=== PATIENT | female | born 1950 | race Hispanic/Latino ===

== ENCOUNTER → 2017-12-28 | Day surgery (SDC) | payer MEDICARE ==
[2017-12-27 16:08] LABS: BASOPHILS % 0.6 % (0.0-1.0); EOSINOPHILS # (AUTO) 0.1 (0.0-0.4); EOSINOPHILS % 1.5 % (0.0-6.0); HEMATOCRIT 37.7 % (34.2-44.1); HEMOGLOBIN 12.5 g/dL (12.0-16.0); LYMPHOCYTES # (AUTO) 1.7 (1.0-3.2); LYMPHOCYTES % 36.6 % (18.0-39.1); MEAN CORPUSCULAR HEMOGLOBIN 30.9 pg (28-32); MEAN CORPUSCULAR HGB CONC 33.2 g/dL (31-35); MEAN CORPUSCULAR VOLUME 93.1 fL (81-99); MONOCYTES # (AUTO) 0.5 (0.2-0.8); MONOCYTES % 10.5 % (4.4-11.3); NEUTROPHILS # (AUTO) 2.4 (2.1-6.9); NEUTROPHILS % 50.8 % (38.7-80.0); PLATELET COUNT 280 x10e3/uL (140-360); RED BLOOD COUNT 4.05 x10e6/uL (3.6-5.1); RED CELL DISTRIBUTION WIDTH 13.2 % (11.7-14.4)
[~2017-12-28] MED LIST: FENOFIBRATE145 MG; FENTANYL CITRATE/PF 100MCG/2 ML INJ ONE; GLIMEPIRIDE1 MG; LIDOCAINE HCL 2% LOCAL INJ 5 ML SDV VIAL INJ ONE; LOSARTAN POTASS25 MG; METFORMIN HCL850 MG PO; MIDAZOLAM HCL 2 MG/2 ML VIAL ONE; ONDANSETRON HCL INJ 2 MG/ML VIAL ONE; PROPOFOL IV EMULSION 10 MG/ML 50 ML VIAL ONE
--- NOTE | 2017-12-28 09:03 | Operative Report ---
DATE OF PROCEDURE: December 28, 2017 REFERRING PHYSICIAN: Dr. Alee Nolan PROCEDURE PERFORMED: Esophagogastroduodenoscopy. INDICATIONS FOR EGD: Upper abdominal pain, nausea and vomiting. MEDICATION: Patient was done under MAC. Please see anesthesiologist's note. PROCEDURE: With the patient in the left lateral decubitus position, the flexible fiberoptic Olympus gastroscope was introduced into the esophagus under direct visualization without any difficulty. There was some patchy erythema noted in the distal esophagus. A minute nodule was noted at the GE junction that was biopsied. The scope was then advanced with ease into the stomach. Mucosa overlying the antrum and the body revealed some patchy erythema and low-grade edema, and biopsies were obtained and sent to stain for H. pylori. Pylorus appeared to be of normal contour and shape. It was intubated with ease. The scope was advanced all the way to the 2nd portion of the duodenum. The scope was then withdrawn slowly. Mucosa overlying the proximal 2nd portion and the duodenal bulb appeared to be within normal limits. The scope was then withdrawn back into the stomach and retroflexed. The mucosa overlying the fundus and the cardia appeared to be within normal limits. The scope was then straightened out. The stomach was decompressed. The scope was subsequently withdrawn. Patient tolerated the procedure well. IMPRESSION 1. Distal esophagitis. 2. Nodule, gastroesophageal junction, biopsied. 3. Gastritis, biopsied. Biopsies sent to stain for Helicobacter pylori. PLAN: Follow up histology. Initiate Protonix 40 mg 1 p.o. q.a.m. a.c. Job#: [id number] RI cc:ALEE NOLAN MD
== END | disposition home or self-care (01) ==
LOC: OR 05:50
PROVIDERS: ATTEND Internal Medicine Gastroenterology
DX: K29.50 Unspecified chronic gastritis without bleeding (principal); B96.81 Helicobacter pylori [H. pylori] as the cause of diseases classified elsewhere; K20.9 Esophagitis, unspecified; L29.0 Pruritus ani; M19.90 Unspecified osteoarthritis, unspecified site; I10 Essential (primary) hypertension; E11.9 Type 2 diabetes mellitus without complications; K21.9 Gastro-esophageal reflux disease without esophagitis; K76.0 Fatty (change of) liver, not elsewhere classified; R06.83 Snoring; Z01.810 Encounter for preprocedural cardiovascular examination; Z01.812 Encounter for preprocedural laboratory examination
CPT/HCPCS: 36415 ×2; 43239; 82948; 85025; 93005; J2001; J2250; J2405

== ENCOUNTER → 2019-01-27 | Day surgery (SDC) | payer OTHER ==
[2019-01-22 16:15] LABS: EOSINOPHILS % 0.1 % (0.0-6.0); HEMATOCRIT 37.6 % (34.2-44.1); HEMOGLOBIN 12.4 g/dL (12.0-16.0); LYMPHOCYTES % 1.9 % (18.0-39.1); MEAN CORPUSCULAR HEMOGLOBIN 30.7 pg (28-32); MEAN CORPUSCULAR VOLUME 93.1 fL (81-99); MONOCYTES % 0.5 % (4.4-11.3); NEUTROPHILS % 3.2 % (38.7-80.0); PLATELET COUNT 223 x10e3/uL (140-360); RED BLOOD COUNT 4.04 x10e6/uL (3.6-5.1); RED CELL DISTRIBUTION WIDTH 13.2 % (11.7-14.4)
[~2019-01-27] MED LIST changes: +BLACK COHOSH200 MG PO; +CENTRUM SILVER1 EAC3 PO; +CRESTOR10 MG PO; -GLIMEPIRIDE1 MG; +GLIMEPIRIDE1 MG PO; +HYOSCYAMINE SULFATE 0.5 MG/ML INJ ONE; -LIDOCAINE HCL 2% LOCAL INJ 5 ML SDV VIAL INJ ONE; -LOSARTAN POTASS25 MG; +LOSARTAN POTASS25 MG PO; -MIDAZOLAM HCL 2 MG/2 ML VIAL ONE; -ONDANSETRON HCL INJ 2 MG/ML VIAL ONE; +POTASSIUM PO; +[UNRECOGNIZED DRUG - REMARK] PO
--- OUTSIDE RECORDS SUMMARY | 2019-01-27 06:18 | XMS REPORT | Summary of Care ---
Author Author [facility] [place] Organization [facility] [place] Address Unknown Phone Unavailable Encounter HQ Encntr_kanika(FIN) [id number] Date(s): 02/11/18 - 02/11/18 [facility] [place] [address] [place] [phone] Discharge Disposition: Home or Self Care Attending Physician: Low Bauer MD Vital Signs No data available for this section Problem List No data available for this section Allergies, Adverse Reactions, Alerts No data available for this section Medications No data available for this section Results No data available for this section Immunizations No data available for this section Procedures No data available for this section Social History No data available for this section Assessment and Plan No data available for this section
--- OUTSIDE RECORDS SUMMARY | 2019-01-27 06:18 | XMS REPORT | Summary of Care ---
Author Organization Unknown Address Unknown Phone Unavailable Encounter [facility] Encntr_[email or web address](FIN) [id number] Date(s): 12/18/14 - 12/18/14 [facility] Outpatient Imaging - [id number] [place] [address] [phone] Discharge Disposition: Home Physician Attending: Low Bauer MD Vital Signs No data [...]
--- OUTSIDE RECORDS SUMMARY | 2019-01-27 06:18 | XMS REPORT | Continuity of Care Document ---
Author Author [facility] Interface Address Unknown Phone Unavailable Problems Problem Status Onset Date Classification Date Reported Comments Source Encounter for screening for osteoporosis 12/12/2017 03/13/2018 [facility] [place] 793.80 - ABL MAMMOGRAM N Active 06/10/2015 [facility] [place] V76.12 - SCREEN MAMMOGRA Active 12/11/2014 [facility] [place] Age-related osteoporosis without current pathological fracture 03/13/2018 [facility] [place] Asymptomatic menopausal state 03/13/2018 [facility] [place] Medications Medication Details Route Status Patient Instructions Ordering Provider Order Date Source Allergies, Adverse Reactions, Alerts Substance Category Reaction Severity Reaction type Status Date Reported Comments Source Immunizations Immunization Date Given Site Status Last Updated Comments Source Results Order Name Results Value Reference Range Date Interpretation Comments Source Fine Needle Asp 1st Les Uni US w Clip US Fine Needle Asp 1st Les Uni US w Clip US ULTRASOUND GUIDED FINE NEEDLE ASPIRATION LEFT BREAST WITH MARKING DEVICE INSERTED AND POST DIGITAL MAMMOGRAPHIC AND ULTRASOUND IMAGIN01/17/2019 CLINICAL: /R92.8 Other Abnormal And Inconclusive Findings On Diagnostic Imaging Of Breast. PATIENT CONSENT: Risks, benefits, and alternatives were discussed with the aid of a trench pipe layer. All questions were answered. Informed consent was obtained. A time out was performed. Correlation is made to exams dated: 01/09/2019 ultrasound, 01/09/2019 mammogram, 09/19/2017 ultrasound, 09/19/2017 mammogram, 07/01/2015 ultrasound, and 07/01/2015 mammogram - [facility]. A fine needle aspiration was performed for the concerning lymph node located in the left axilla. This was described on the previous ultrasound report. The skin was prepped in the usual manner. Local anesthetic was administered to the access site. A 21 gauge needle was percutaneously placed into the abnormality under ultrasound guidance. Once the needle was documented to be in the correct location, two specimens were obtained. A wing clip was inserted into the biopsy cavity. A skin adhesive and a sterile dressing were applied to the access site. Post procedure digital mammographic and ultrasound imaging demonstrates the clip at the targeted area. The specimens were sent to the laboratory for cytological analysis. IMPRESSION: FINE NEEDLE ASPIRATION BENIGN RECOMMENDATION:Fine needle aspiration of the lymph node in the left axilla was successful with no apparent post procedure complications. Cytology indicates benign lymph node (LN). Cytology results are concordant with imaging findings. A follow-up mammogram of the biopsied breast in 6 months is recommended to demonstrate stability.(07/19/2019) This exam was interpreted at [id number] for RADHA Woods, SL 15. Professional services are provided by the [facility] of Diagnostic Imaging. Aimee Valladares M.D. ms,cm/penmark:01/23/2019 12:04:46 Assistant Teacher Primary(s): Gema Snyder [facility] letter sent: Post Bx Results 01/17/2019 - - Read by: Aimee Giron MD Dictated Date/time: 01/23/19 12:04 Electronically Signed by: Aimee Giron MD 01/23/19 12:04 FINAL REPORT RADHA Woods Breast BX Uni w Clip Primary Side US Breast BX Uni w Clip Primary Side US ULTRASOUND GUIDED BIOPSY LEFT BREAST WITH MARKING DEVICE INSERTED AND POST DIGITAL MAMMOGRAPHIC AND ULTRASOUND IMAGIN01/17/2019 CLINICAL: /R92.2 Inconclusive Mammogram. PATIENT CONSENT: The risks, benefits and alternatives for the procedure were discussed with the patient through Barbadian translation. Patient acknowledged understanding and informed written consent was obtained. Time out was performed to verify the lesion location and patient identification. Correlation is made to exams dated: 01/09/2019 ultrasound, 01/09/2019 mammogram, 09/19/2017 ultrasound, 09/19/2017 mammogram, 07/01/2015 ultrasound, and 07/01/2015 mammogram - [facility]. An ultrasound guided biopsy using real-time ultrasound was performed for the concerning 2.4 cm x 1.6 cm x 1.2 cm lesion located in the left breast at 3 o'clock middle depth 3 cm from the nipple. This was described on the previous mammography and ultrasound reports. The skin was prepped in the usual manner. Local anesthetic was administered to the access site. A 14 gauge biopsy needle was placed adjacent to the abnormality through an introducer device under ultrasound guidance. Once the needle was documented to be in the correct location, four cores were obtained using a BARD biopsy device. A ribbon clip was inserted into the biopsy cavity. A skin adhesive was applied to the access site. Post procedure digital mammographic and ultrasound imaging demonstrates the clip at the targeted area and partial removal of the abnormality. The specimens were sent to the laboratory for pathological analysis. IMPRESSION: ULTRASOUND GUIDED BIOPSY BENIGN RECOMMENDATION:Ultrasound guided biopsy of the 2.4 cm x 1.6 cm x 1.2 cm lesion in the left breast at 3 o'clock middle depth 3 cm from the nipple was successful with no apparent post procedure complications. Pathology indicates benign intraductal sclerosed papilloma. Pathology results are concordant with imaging findings. A surgical consultation is recommended. The entire area of possible additional papilloma involvement measures 5 x 5 x 4 cm. Excision vs follow-up mammogram biopsied breast in 6 months is recommended. These results were discussed with Janneth at Dr. Bauer's office on 01/23/19. Professional services are provided by the [facility] of Diagnostic Imaging. Aimee Valladares M.D. ms,cm/:01/23/2019 12:12:25 Assistant Teacher Primary(s): Gema Snyder [facility] letter sent: Surgical Consult Post Bx 01/17/2019 - - Read by: Aimee Giron MD Dictated Date/time: 01/23/19 12:12 Electronically Signed by: Aimee Giron MD 01/23/19 12:12 FINAL REPORT [facility] Breast Complete Uni US Breast Complete Uni US COMPLETE ULTRASOUND OF LEFT BREAST AND AXILLA: 01/09/2019 CLINICAL: /R92.2 Inconclusive Mammogram. COMPARISON:Comparison is made to exams dated: 01/09/2019 mammogram, 09/19/2017 ultrasound, 09/19/2017 mammogram, 07/01/2015 ultrasound, 07/01/2015 mammogram, and 12/28/2014 ultrasound - [facility]. TECHNIQUE: Color flow and real-time ultrasound of the left breast four quadrants and axilla regions were performed on the areas of interest. FINDINGS: There is a 2.4 cm x 1.6 cm x 1.2 cm area of multiple complex cysts in the left breast superior lateral quadrant middle depth 3 cm from the nipple. These complex cysts are hypoechoic with internal echoes. These abnormalities are increased in size and correlate with mammography findings. There are two prominent level I axillary lymph nodes. No lymphadenopathy in the remaining axillary or internal mammary elsi basins is identified. IMPRESSION: SUSPICIOUS OF MALIGNANCY RECOMMENDATION: The 2.4 cm x 1.6 cm x 1.2 cm area of complex cysts in the left breast is at an intermediate suspicion for malignancy. An ultrasound guided biopsy is recommended. FNA of an enlarged axillary node is recommended. Professional services are provided by the [facility] of Diagnostic Imaging. Marco Valladares M.D. cm/:01/09/2019 15:45:36 Assistant Teacher Primary(s): Gema Snyder [facility] letter sent: BI-RADS 4/5 Ultrasound BI-RADS: 4b Suspicious abnormality - intermediate suspicion of malignancy 01/09/2019 - - Read by: Abhijeet Garay MD Dictated Date/time: 01/09/19 15:45 Electronically Signed by: Abhijeet Garay MD 01/09/19 15:45 FINAL REPORT RADHA Woods Breast Mammo Diag ROYAL incl CAD MA Breast Mammo Diag ROYAL incl CAD MA BILATERAL DIGITAL DIAGNOSTIC MAMMOGRAM WITH CAD: 01/09/2019 CLINICAL: Inconclusive Mammogram/R92.2. Current study was evaluated with a Computer Aided Detection (CAD) system. COMPARISON:Comparison is made to exams dated: 09/19/2017 mammogram, 07/01/2015 mammogram, 12/28/2014 mammogram, and 12/18/2014 mammogram - [facility]. TECHNIQUE: Mammographic views were obtained using digital acquisition. Current study was also evaluated with a Computer Aided Detection (CAD) system. FINDINGS: The tissue of both breasts is heterogeneously dense, which could obscure detection of small masses. There are multiple oval masses with an obscured margin in the left breast superior lateral quadrant posterior depth 8 cm from the nipple. These are slightly more prominent when compared with prior exam. Bilateral scattered calcififcations appear benign. IMPRESSION: INCOMPLETE: NEEDS ADDITIONAL IMAGING EVALUATION RECOMMENDATION:The multiple oval masses in the left breast are indeterminate. An ultrasound is recommended. This exam was interpreted at [id number] for MH Clayton, SL 15. Professional services are provided by the [facility]. Marco Valladares M.D. cm/:01/09/2019 10:42:40 Assistant Teacher Primary(s): RT Chyna(R)(M), [facility] Mammogram BI-RADS: 0 Indeterminate 01/09/2019 - - Read by: Abhijeet Garay MD Dictated Date/time: 01/09/19 10:42 Electronically Signed by: Abhijeet Garay MD 01/09/19 10:42 FINAL REPORT [facility] Bone Density [employer] MA Bone Density [employer] MA BONE DENSITY ASSESSMENT: 01/01/2019 CLINICAL DATA: Post menopausal. M81.0 Age related osteoporosis without current pathological fracture. M81.0 Age-Related Osteoporosis Without Current Pathological Fracture/M81.0 Age-Related Osteoporosis Without Current Pathological Fracture COMPARISON: 12/05/2017 AP L1-L4 region of spine using a Hologic unit from [facility] with reported high fracture risk, BMD of 0.708g/cm2, T-score of -3.10, and Z-score of -1.30. 12/05/2017 Left hip using a Hologic unit from [facility] with reported medium fracture risk, BMD of 0.741g/cm2, T-score of -1.60, and Z-score of - 0.50. 12/05/2017 Right hip using a Hologic unit from [facility] with reported medium fracture risk, BMD of 0.754g/cm2, T-score of -1.50, and Z-score of - 0.40. FINDINGS: Bone density evaluation was performed 01/01/2019 on the right femur neck using a Hologic unit. The BMD average for the exam is 0.669 g/cm2. The T-score is -1.60 and the Z-score is -0.20. This matches the World Health Organization's criteria for osteopenia and places the patient at a medium risk for fracture. An additional bone density evaluation was performed 01/01/2019 on the left femur neck using a Hologic unit. The BMD average for the exam is 0.687 g/cm2. The T- score is -1.50 and the Z-score is -0.10. This matches the World Health Organization's criteria for osteopenia and places the patient at a medium risk for fracture. An additional bone density evaluation was performed 01/01/2019 on the right hip using a Hologic unit. The BMD average for the exam is 0.754 g/cm2. The T-score is -1.50 and the Z-score is -0.40. Since the previous similar exam of 12/05/2017, there has been no change in bone density. This matches the World Health Organization's criteria for osteopenia and places the patient at a medium risk for fracture. An additional bone density evaluation was performed 01/01/2019 on the left hip using a Hologic unit. The BMD average for the exam is 0.771 g/cm2. The T-score is -1.40 and the Z-score is -0.20. Since the previous similar exam of 12/05/2017, there has been a +0.030 or +4.0% change in the BMD value which represents no significant interval change in bone density. This matches the World Health Organization's criteria for osteopenia and places the patient at a medium risk for fracture. An additional bone density evaluation was performed 01/01/2019 on the AP L1-L4 region of spine using a Hologic unit. The BMD average for the exam is 0.696 g/cm2. The T-score is -3.20 and the Z-score is -1.30. Since the previous similar exam of 12/05/2017, there has been a -0.012 or -1.7% change in the BMD value which represents no significant interval change in bone density. This matches the World Health Organization's criteria for osteoporosis and places the patient at a high risk for fracture. IMPRESSION: OSTEOPOROSIS Patient is at high risk for fracture. This exam was interpreted at [id number] for KARLENE Man 15. Marco Valladares M.D., cm/bri:01/01/2019 12:27:12 Assistant Teacher Primary(s): Laura DANIEL(R)(M), [facility] 01/01/2019 - - Read by: Abhijeet Garay MD Dictated Date/time: 01/01/19 12:27 Electronically Signed by: Abhijeet Garay MD 01/01/19 12:27 FINAL REPORT JENNIFER Woods Humerus 2 views DX Humerus 2 views DX HISTORY: - M79.602 Pain in left arm TECHNIQUE: AP and lateral views of the left humerus. COMPARISON: None available. FINDINGS: Normal mineralization and anatomic alignment of the bones without fracture or dislocation. The joint spaces are well-maintained without evidence of effusion. IMPRESSION: No acute osseous injury. [id number] 02/11/2018 - - Read by: Todd Dunlap MD Dictated Date/time: 02/11/18 14:25 Electronically Signed by: Todd Dunlap MD 02/11/18 14:25 FINAL REPORT JENNIFER Woods Bone Density [employer] MA Bone Density [employer] MA BONE DENSITY ASSESSMENT: 12/05/2017 CLINICAL DATA: Post menopausal. Z13.820-Screening for osteoporosis. Z13.820 Encounter For Screening For Osteoporosis/Z13.820 Encounter For Screening For Osteoporosis RISK FACTORS: . FINDINGS: Bone density evaluation was performed 12/05/2017 on the right femur neck using a Hologic unit. The BMD average for the exam is 0.701 g/cm2. The T-score is - 1.30. This matches the World Health Organization's criteria for osteopenia and places the patient at a medium risk for fracture. An additional bone density evaluation was performed 12/05/2017 on the left femur neck using a Hologic unit. The BMD average for the exam is 0.665 g/cm2. The T- score is -1.70 and the Z-score is -0.30. This matches the World Health Organization's criteria for osteopenia and places the patient at a medium risk for fracture. An additional bone density evaluation was performed 12/05/2017 on the right hip using a Hologic unit. The BMD average for the exam is 0.754 g/cm2. The T-score is -1.50 and the Z-score is -0.40. This matches the World Health Organization's criteria for osteopenia and places the patient at a medium risk for fracture. An additional bone density evaluation was performed 12/05/2017 on the left hip using a Hologic unit. The BMD average for the exam is 0.741 g/cm2. The T-score is -1.60 and the Z-score is -0.50. This matches the World Health Organization's criteria for osteopenia and places the patient at a medium risk for fracture. An additional bone density evaluation was performed 12/05/2017 on the AP L1-L4 region of spine using a Hologic unit. The BMD average for the exam is 0.708 g/cm2. The T-score is -3.10 and the Z-score is -1.30. This matches the World Health Organization's criteria for osteoporosis and places the patient at a high risk for fracture. IMPRESSION: OSTEOPOROSIS Patient is at high risk for fracture. This exam was interpreted at [id number] for RADHA Woods. Marco Valladares M.D. cm/penrad:12/06/2017 08:29:39 Assistant Teacher Primary(s): Laura DANIEL(Scarlett)(M), [facility] 12/05/2017 - - Read by: Abhijeet Garay MD Dictated Date/time: 12/06/17 08:29 Electronically Signed by: Abhijeet Garay MD 12/06/17 08:29 FINAL REPORT JENNIFER [place] Breast Complete Uni US Breast Complete Uni US CLINICAL: Left Breast Follow Up/R92.2 Inconclusive Mammogram. Comparison is made to exams dated: 09/19/2017 mammogram, 07/01/2015 ultrasound, 07/01/2015 mammogram, 12/28/2014 ultrasound, 12/28/2014 mammogram, and 12/18/2014 mammogram - [facility]. Color flow and real-time ultrasound of the left breast and axilla were performed on the areas of interest. There are multiple various size oval simple and complicated cysts in the left breast 3-4 o'clock 8 cm from the nipple. These correlate with mammography findings. Color flow imaging demonstrates that there is no vascularity present. No abnormalities were seen sonographically in the left breast or the left axilla. IMPRESSION: PROBABLY BENIGN The multiple various size oval complicated and simple cysts in the left breast are probably benign. A biopsy was discussed but refused. Therefore a follow-up mammogram and an ultrasound in 12 months is recommended for further evaluation. These results were discussed with the patient, who was instructed to return immediately if she notices any change in the physical exam. Professional services are provided by the [facility]. Marco Valladares M.D. cm/:09/19/2017 11:44:48 Assistant Teacher Primary(s): Pratibha Oviedo, [facility] letter sent: BI-RADS 3 Ultrasound BI-RADS: 3 Probably benign 09/19/2017 - - Read by: Abhijeet Garay MD Dictated Date/time: 09/19/17 11:44 Electronically Signed by: Abhijeet Garay MD 09/19/17 11:44 FINAL REPORT RADHA Woods Breast Mammo Diag ROYAL incl CAD MA Breast Mammo Diag ROYAL incl CAD MA CLINICAL: R92.2/Inconclusive Mammogram. Current study was evaluated with a Computer Aided Detection (CAD) system. Comparison is made to exams dated: 07/01/2015 mammogram, 12/28/2014 mammogram, 12/18/2014 mammogram - [facility], 08/15/2004 mammogram, 02/03/2003 mammogram, and 06/04/2000 mammogram - [facility]. The tissue of both breasts is heterogeneously dense, which could obscure detection of small masses. There are multiple various sized oval circumscribed masses in the left breast superior lateral quadrant posterior depth 8 cm from the nipple. Several of these appear to have slightly increased in size since 2015. No other significant masses, calcifications, or other findings are seen in either breast. IMPRESSION: INCOMPLETE: NEEDS ADDITIONAL IMAGING EVALUATION The multiple various size masses in the left breast are indeterminate. An ultrasound is recommended. Professional services are provided by the [facility]. Marco Valladares M.D. cm/:09/19/2017 11:35:00 Assistant Teacher Primary(s): Laura Hatfield RT(R)(M), [facility] Mammogram BI-RADS: 0 Indeterminate 09/19/2017 - - Read by: Abhijeet Garay MD Dictated Date/time: 09/19/17 11:35 Electronically Signed by: Abhijeet Garay MD 09/19/17 11:35 FINAL REPORT RADHA Woods Breast Limited Uni US Breast Limited Uni US - DIGITAL MAMMO DX UNI MA/L - BREAST LIMITED UNI US/L UNILATERAL LEFT DIGITAL DIAGNOSTIC MAMMOGRAM WITH CAD AND TARGETED LEFT ULTRASOUND: 07/01/2015 CLINICAL: 793.80 Abnormal Mammogram, Unspecified. Current study was evaluated with a Computer Aided Detection (CAD) system. Comparison is made to exams dated: 12/28/2014 ultrasound, 12/28/2014 mammogram, 12/18/2014 mammogram - [facility], 08/15/2004 mammogram and 02/03/2003 mammogram - [facility]. The tissue of the left breast is heterogeneously dense, which could obscure detection of small masses. There also are multiple clusters of lobulated equal density masses with a circumscribed margin in the upper outer left breast. Targeted ultrasound demonstrates a stable cluster of cysts at 3 o'clock middle depth which demonstrate a well-defined boudary, but some of the cysts are complicated with internal debris and thin septations, unchanged compared with the prior examination. This correlates with mammography findings. Ultrasound also demonstrates an abnormal appearing lymph node in the left axilla with focal cortical thickening. This abnormality was not seen mammographically. No other significant masses or calcifications are seen in the breast on the mammogram or targeted ultrasound. IMPRESSION: SUSPICIOUS OF MALIGNANCY, TARGETED ULTRASOUND SUSPICIOUS OF MALIGNANCY The cluster of complicated cysts in the left breast at 3 o'clock are unchanged and remain probably benign; however, these are new mammographically from 2003 warranting aspiration/biopsy as discussed on the addendum of the prior examination. At this time, the patient desires to follow these lesions to demonstrate stability. If biopsy/aspiration remains undesired, continued follow- up with mammogram and ultrasound in 6 months is recommended. Abnormal appearing lymph node in the left axilla with focal cortical thickening is noted on sonogram. This enlarged lymph is indeterminate, which differential including infectious, inflammatory, or malignant etiologies. Ultrasound-guided biopsy of this lymph node is recommended as clinically warranted. The results were reviewed with the patient using an calibration technician. Gurwinder Reno cl/:07/01/2015 13:22:39 Assistant Teacher Primary: Martha DANIEL(R)(M), [facility] This exam was dictated and interpreted by [id number] for RADHA Woods. letter sent: Biopsy Mammogram BI-RADS: 4 Suspicious abnormality Ultrasound BI-RADS: 4 Suspicious abnormality 07/01/2015 - - Read by: Gurwinder Reno MD Dictated Date/time: 07/01/15 13:22 Electronically Signed by: Gurwinder Reno MD 07/01/15 13:22 FINAL REPORT RADHA RODRIGUEZ [place] Digital Mammo DX Uni MA Digital Mammo DX Uni MA - DIGITAL MAMMO DX UNI MA/L - BREAST LIMITED UNI US/L UNILATERAL LEFT DIGITAL DIAGNOSTIC MAMMOGRAM WITH CAD AND TARGETED LEFT ULTRASOUND: 07/01/2015 CLINICAL: 793.80 Abnormal Mammogram, Unspecified. Current study was evaluated with a Computer Aided Detection (CAD) system. Comparison is made to exams dated: 12/28/2014 ultrasound, 12/28/2014 mammogram, 12/18/2014 mammogram - [facility], 08/15/2004 mammogram and 02/03/2003 mammogram - [facility]. The tissue of the left breast is heterogeneously dense, which could obscure detection of small masses. There also are multiple clusters of lobulated equal density masses with a circumscribed margin in the upper outer left breast. Targeted ultrasound demonstrates a stable cluster of cysts at 3 o'clock middle depth which demonstrate a well-defined boudary, but some of the cysts are complicated with internal debris and thin septations, unchanged compared with the prior examination. This correlates with mammography findings. Ultrasound also demonstrates an abnormal appearing lymph node in the left axilla with focal cortical thickening. This abnormality was not seen mammographically. No other significant masses or calcifications are seen in the breast on the mammogram or targeted ultrasound. IMPRESSION: SUSPICIOUS OF MALIGNANCY, TARGETED ULTRASOUND SUSPICIOUS OF MALIGNANCY The cluster of complicated cysts in the left breast at 3 o'clock are unchanged and remain probably benign; however, these are new mammographically from 2003 warranting aspiration/biopsy as discussed on the addendum of the prior examination. At this time, the patient desires to follow these lesions to demonstrate stability. If biopsy/aspiration remains undesired, continued follow- up with mammogram and ultrasound in 6 months is recommended. Abnormal appearing lymph node in the left axilla with focal cortical thickening is noted on sonogram. This enlarged lymph is indeterminate, which differential including infectious, inflammatory, or malignant etiologies. Ultrasound-guided biopsy of this lymph node is recommended as clinically warranted. The results were reviewed with the patient using an calibration technician. Gurwinder Reno cl/:07/01/2015 13:22:39 Assistant Teacher Primary: Martha DANIEL(Scarlett)(M), [facility] This exam was dictated and interpreted by [id number] for RADHA Woods. letter sent: Biopsy Mammogram BI-RADS: 4 Suspicious abnormality Ultrasound BI-RADS: 4 Suspicious abnormality 07/01/2015 - - Read by: Gurwinder Reno MD Dictated Date/time: 07/01/15 13:22 Electronically Signed by: Gurwinder Reno MD 07/01/15 13:22 FINAL REPORT RADHA Woods Liver US Liver US LIVER ULTRASOUND CLINICAL HISTORY: Abnormal hepatic enzymes. COMPARISON IMAGING: None. FINDINGS: Liver: Measures 15.1 cm in length (normal: 13-17 cm). Echogenicity is unremarkable. No suspicious lesion or surface nodularity. Portal and hepatic veins are patent with normal directions of flow. Biliary: No gallstones, gallbladder wall thickening, or sonographic Zuniga's sign. There is no biliary duct dilation. Mid common bile duct measures 5 mm in diameter. Pancreas: No focal lesion. However, certain portions are obscured by overlying bowel gas and unable to be evaluated. Vascular: Visualized portions of the IVC are patent. No obvious aneurysmal dilatation of the aorta. IMPRESSION: No significant abnormality is seen on this exam. 01/12/2015 - - Read by: Tomi Darby MD Dictated Date/time: 01/12/15 08:43 Electronically Signed by: Tomi Darby MD 01/12/15 08:44 FINAL REPORT RADHA Woods Breast Limited Uni US Breast Limited Uni US AMENDMENT: 01/11/2015 Alberto Duncan M.D. Previous outside mammograms from 1999, 2002, and 2003 have been received. The masses in the upper outer left mammogram are new. As such, the complicated cysts seen on ultrasound are now deemed suspicious. Advise ultrasound guided aspiration (or possible biopsy) of at least one of these (preferably the lesion at 9:00, 7 cmfn which appears to have the most internal debris). Management of the other lesions (which are likely the same process) can be determined pending the results of aforementioned aspiration/biopsy. Findings and recommendations discussed with Dr. Bauer at 0830 hours 01/11/15. Amended BI-RADS: 4 Suspicious abnormality letter sent: Biopsy - DIGITAL MAMMO DX UNI MA/L - BREAST LIMITED UNI US/L UNILATERAL LEFT DIGITAL DIAGNOSTIC MAMMOGRAM AND TARGETED LEFT ULTRASOUND: 12/28/2014 CLINICAL: Mammographic Abnormality. Comparison is made to exam dated: 12/18/2014 mammogram - [facility]. The tissue of the left breast is heterogeneously dense, which could obscure detection of small masses. There are multiple clusters of lobulated equal density masses with a circumscribed margin in the outer left breast. Targeted ultrasound demonstrates multiple lobulated cysts within the outer left breast at the 3 o'clock position (please note the ultrasound images are incorrectly labeled as 9 o'clock). These lobulated complicated cysts display a well-defined boundary, but some of the cysts are complicated with internal debris and thin septations. The largest complicated cyst is within the outer left breast 7 cm from the nipple measuring 8 x 10 x 4 mm. These correlate with mammography findings. No other significant masses or calcifications are seen in the breast on the mammogram or targeted ultrasound. IMPRESSION: PROBABLY BENIGN, TARGETED ULTRASOUND PROBABLY BENIGN The multiple lobulated masses in the left breast likely represent both simple and mildly complicated cysts and are probably benign. A follow-up in 6 months is recommended to assure stability of the complicated cysts. A follow-up mammogram and an ultrasound in 6 months is recommended to demonstrate stability. Gurwinder Reno cl/:12/28/2014 16:24:13 Assistant Teacher Primary: Shantell DANIEL(Scarlett)(Mili), [facility] This exam was dictated and interpreted by [id number] for RADHA Woods. letter sent: Followup Mammogram BI-RADS: 3 Probably benign Ultrasound BI-RADS: 3 Probably benign 12/28/2014 - - Read by: Gurwinder Reno MD Dictated Date/time: 12/28/14 16:24 Electronically Signed by: Gurwinder Reno MD 12/28/14 16:24 FINAL REPORT - - Read by: Gurwinder Reno MD Dictated Date/time: 12/28/14 16:24 Electronically Signed by: Gurwinder Reno MD 12/28/14 16:24 FINAL REPORT JENNIFER Woods Digital Mammo DX Uni MA Digital Mammo DX Uni MA AMENDMENT: 01/11/2015 Alberto Duncan M.D. Previous outside mammograms from 1999, 2002, and 2003 have been received. The masses in the upper outer left mammogram are new. As such, the complicated cysts seen on ultrasound are now deemed suspicious. Advise ultrasound guided aspiration (or possible biopsy) of at least one of these (preferably the lesion at 9:00, 7 cmfn which appears to have the most internal debris). Management of the other lesions (which are likely the same process) can be determined pending the results of aforementioned aspiration/biopsy. Findings and recommendations discussed with Dr. Bauer at 0830 hours 01/11/15. Amended BI-RADS: 4 Suspicious abnormality letter sent: Biopsy - DIGITAL MAMMO DX UNI MA/L - BREAST LIMITED UNI US/L UNILATERAL LEFT DIGITAL DIAGNOSTIC MAMMOGRAM AND TARGETED LEFT ULTRASOUND: 12/28/2014 CLINICAL: Mammographic Abnormality. Comparison is made to exam dated: 12/18/2014 mammogram - [facility]. The tissue of the left breast is heterogeneously dense, which could obscure detection of small masses. There are multiple clusters of lobulated equal density masses with a circumscribed margin in the outer left breast. Targeted ultrasound demonstrates multiple lobulated cysts within the outer left breast at the 3 o'clock position (please note the ultrasound images are incorrectly labeled as 9 o'clock). These lobulated complicated cysts display a well-defined boundary, but some of the cysts are complicated with internal debris and thin septations. The largest complicated cyst is within the outer left breast 7 cm from the nipple measuring 8 x 10 x 4 mm. These correlate with mammography findings. No other significant masses or calcifications are seen in the breast on the mammogram or targeted ultrasound. IMPRESSION: PROBABLY BENIGN, TARGETED ULTRASOUND PROBABLY BENIGN The multiple lobulated masses in the left breast likely represent both simple and mildly complicated cysts and are probably benign. A follow-up in 6 months is recommended to assure stability of the complicated cysts. A follow-up mammogram and an ultrasound in 6 months is recommended to demonstrate stability. Gurwinder Reno cl/:12/28/2014 16:24:13 Assistant Teacher Primary: Shantell DANIEL(R)(M), [facility] This exam was dictated and interpreted by [id number] for Peggy. letter sent: Followup Mammogram BI-RADS: 3 Probably benign Ultrasound BI-RADS: 3 Probably benign 12/28/2014 - - Read by: Gurwinder Reno MD Dictated Date/time: 01/11/15 08:35 Electronically Signed by: Gurwinder Reno MD 01/11/15 08:35 FINAL REPORT - - Read by: Gurwinder Reno MD Dictated Date/time: 12/28/14 16:24 Electronically Signed by: Gurwinder Reno MD 12/28/14 16:24 FINAL REPORT RADHA Woods Digital Mammo Screening Royal MA Digital Mammo Screening Royal MA - DIGITAL MAMMO SCREENING ROYAL MA BILATERAL DIGITAL SCREENING MAMMOGRAM WITH CAD: 12/18/2014 CLINICAL: Routine. Current study was evaluated with a Computer Aided Detection (CAD) system. No prior exams were available for comparison. The tissue of both breasts is heterogeneously dense, which could obscure detection of small masses. There are multiple masses in the left breast. No other significant masses, calcifications, or other findings are seen in either breast. IMPRESSION: INCOMPLETE: NEEDS ADDITIONAL IMAGING EVALUATION The multiple masses in the left breast are indeterminate. Additional views with possible ultrasound are recommended. SUMMARY: The patient will be contacted by [facility] to return for further imaging. Attempts to contact the patient should also be made by the referring physician in the event that we are unsuccessful. Dr. Tomi Darby M.D. eoc/penrad:12/18/2014 11:41:50 Assistant Teacher Primary: Laura Hatfield [facility] This exam was dictated and interpreted by [id number] for RADHA Bowman. letter sent: Additional Imaging Mammogram BI-RADS: 0 Indeterminate 12/18/2014 - - Read by: Tomi Darby MD Dictated Date/time: 12/18/14 11:41 Electronically Signed by: Tomi Darby MD 12/18/14 11:41 FINAL REPORT RADHA Woods Bone Density-Dual Energy Absorptionmetry Bone Density-Dual Energy Absorptionmetry - Bone Density-Dual Energy Absorptionmetry BONE DENSITY EVALUATION: 12/18/2014 CLINICAL DATA: Post menopausal and clinical risk for osteoporosis. FINDINGS: Bone density evaluation was performed 12/18/2014 on the AP L1-L4 region of spine using Lunar Dual Energy X-Ray Absorptiometry. The BMD average for the exam is 0.770 g/cm2. The T-score is -3.40 and the Z-score is -2.40. These values indicate 73.0% for age-matched controls. This matches the World Health Organization's criteria for osteoporosis and places the patient at a high risk for fracture. An additional bone density evaluation was performed 12/18/2014 on the right femur neck using Lunar Dual Energy X-Ray Absorptiometry. The BMD average for the exam is 0.790 g/cm2. The T-score is -1.80 and the Z-score is -0.70. These values indicate 90.0% for age-matched controls. This matches the World Health Organization's criteria for osteopenia and places the patient at a medium risk for fracture. An additional bone density evaluation was performed 12/18/2014 on the right hip using Lunar Dual Energy X-Ray Absorptiometry. The BMD average for the exam is 0.824 g/cm2. The T-score is -1.50 and the Z-score is -0.70. These values indicate 91.0% for age-matched controls. This matches the World Health Organization's criteria for osteopenia and places the patient at a medium risk for fracture. An additional bone density evaluation was performed 12/18/2014 on the left femur neck using Lunar Dual Energy X-Ray Absorptiometry. The BMD average for the exam is 0.789 g/cm2. The T-score is -1.80 and the Z-score is -0.70. These values indicate 89.0% for age-matched controls. This matches the World Health Organization's criteria for osteopenia and places the patient at a medium risk for fracture. An additional bone density evaluation was performed 12/18/2014 on the left hip using Lunar Dual Energy X-Ray Absorptiometry. The BMD average for the exam is 0.868 g/cm2. The T-score is -1.10 and the Z-score is -0.30. These values indicate 96.0% for age-matched controls. This matches the World Health Organization's criteria for osteopenia and places the patient at a medium risk for fracture. IMPRESSION: OSTEOPOROSIS Patient is at high risk for fracture. Patient consult w/primary care provider is recommended. This exam was dictated and interpreted by [id number] for RADHA Woods. Alberto allan/bri:12/18/2014 10:19:50 Assistant Teacher Primary: Shelia Ramsay Kurtchika Woods 12/18/2014 - - Read by: Alberto Duncan MD Dictated Date/time: 12/18/14 10:19 Electronically Signed by: Alberto Duncan MD 12/18/14 10:19 FINAL REPORT [facility] Vital Signs Vital Sign Value Date Comments Source Encounters Location Location Details Encounter Type Encounter Number Reason For Visit Attending Provider ADM Date DC Date Status Source [facility] [id number] Low Bauer 12/18/2014 12/19/2014 [facility] [place] [facility] [id number] Low Bauer 12/28/2014 12/29/2014 [facility] [place] [facility] [id number] Low Bauer 01/12/2015 01/13/2015 [facility] [place] [facility] [id number] Lowchris Bauer 07/01/2015 07/02/2015 [facility] [place] [facility] [id number] Low Bauer 09/19/2017 09/20/2017 [facility] [place] [facility] [id number] Low Bauer 12/05/2017 12/06/2017 [facility] [place] [facility] [id number] Low Bauer 02/11/2018 02/12/2018 [facility] [place] [facility] [id number] Low Bauer 01/01/2019 01/02/2019 [facility] [place] [facility] [place] [facility] [id number] Low Bauer 01/09/2019 01/10/2019 [facility] [place] [facility] [id number] Low Bauer 01/17/2019 01/18/2019 [facility] Procedures Procedure Code Date Perfomer Comments Source
--- OUTSIDE RECORDS SUMMARY | 2019-01-27 06:18 | XMS REPORT | Summary of Care ---
Author Author [facility] [place] Organization [facility] [place] Address Unknown Phone Unavailable Encounter HQ Encntr_kanika(FIN) [id number] Date(s): 01/01/19 - 01/01/19 [facility] [place] [address] [place] [address] [phone] Discharge Disposition: Home or Self Care Attending Physician: Low Bauer MD Referring Physician: Low Bauer MD Vital Signs No [...]
--- OUTSIDE RECORDS SUMMARY | 2019-01-27 06:18 | XMS REPORT | Summary of Care ---
Author Author [facility] [place] Organization [facility] [place] Address Unknown Phone Unavailable Encounter HQ Encntr_alias(FIN) [id number] Date(s): 01/17/19 - 01/17/19 [facility] [place] [address] [place] [address]- [phone] Discharge Disposition: Home or Self Care Attending Physician: Low Bauer MD Referring Physician: oLw Bauer MD Vital Signs No data available [...]
--- OUTSIDE RECORDS SUMMARY | 2019-01-27 06:18 | XMS REPORT | Summary of Care ---
Author Author [facility] [place] Organization [facility] [place] Address Unknown Phone Unavailable Encounter HQ Encntr_alias(FIN) [id number] Date(s): 09/19/17 - 09/19/17 [facility] [place] [address] [place] [address]- [phone] Discharge Disposition: Home or Self Care Attending [...]
--- OUTSIDE RECORDS SUMMARY | 2019-01-27 06:18 | XMS REPORT | Summary of Care ---
Author Author [facility] [place] Organization [facility] [place] Address Unknown Phone Unavailable Encounter HQ Encntr_alias(FIN) [id number] Date(s): 07/01/15 - 07/01/15 [facility] [place] [address] [place] [id number] [place] [address] [phone] Discharge Disposition: Home Attending Physician: Low Bauer MD Vital Signs [...]
--- OUTSIDE RECORDS SUMMARY | 2019-01-27 06:18 | XMS REPORT | Summary of Care ---
Author Organization Unknown Address Unknown Phone Unavailable Encounter HQ Encntr_alias(FIN) [id number] Date(s): 12/28/14 - 12/28/14 [facility] Outpatient Imaging - [id number] [place] [address] [phone] Discharge Disposition: Home Physician Attending: Low Bauer [...]
--- OUTSIDE RECORDS SUMMARY | 2019-01-27 06:18 | XMS REPORT | Summary of Care ---
Author Author [facility] [place] Organization [facility] [place] Address Unknown Phone Unavailable Encounter HQ Encntr_aliwilfredo(FIN) [id number] Date(s): 01/09/19 - 01/09/19 [facility] [place] [address] [place] [address]- [phone] Discharge Disposition: Home or Self Care Attending [...]
--- OUTSIDE RECORDS SUMMARY | 2019-01-27 06:18 | XMS REPORT | Summary of Care ---
Author Author [facility] [place] Organization [facility] [place] Address Unknown Phone Unavailable Encounter HQ Encntr_kanika(FIN) [id number] Date(s): 12/05/17 - 12/05/17 [facility] [place] [address] [place] [address]- [phone] Encounter Diagnosis Encounter for screening for osteoporosis (Final) - 12/11/17 Age-related osteoporosis without current pathological fracture (Final) - Asymptomatic menopausal state (Final) - Discharge Disposition: Home or Self Care Attending [...]
--- OUTSIDE RECORDS SUMMARY | 2019-01-27 06:18 | XMS REPORT | Summary of Care ---
Author Organization Unknown Address Unknown Phone Unavailable Encounter HQ Encntr_alias(FIN) [id number] Date(s): 01/12/15 - 01/12/15 [facility] Outpatient Imaging - [id number] [place] [address] [phone] Discharge Disposition: Home Physician Attending: Low Bauer [...]
[2019-01-27 10:10] VITALS: BP 144/93
--- NOTE | 2019-01-27 15:41 | Operative Report ---
DATE OF PROCEDURE: 01/27/2019 SURGEON: Kemal Corey MD PROCEDURE: Colonoscopy and polypectomy with biopsies. INDICATIONS FOR COLONOSCOPY: Colorectal cancer screening, anorectal discomfort. MEDICATIONS: The patient was done under MAC, please see anesthesiologist's note. PROCEDURE IN DETAIL: With the patient in left lateral decubitus position, flexible fiberoptic Olympus colonoscope was inserted into the rectum with ease and advanced all the way to the cecum. It was then withdrawn slowly and mucosa overlying the cecum, ascending colon, and transverse colon appeared to be within normal limits. One polyp was snared from the descending colon. Diverticular disease was noted in the sigmoid colon. Two polyps were snared from the sigmoid colon. One polyp was hot biopsied from the rectum. Mucosa overlying the rectum revealed some patchy erythema and moderate edema and biopsies were obtained. The scope was then retroflexed into the distal rectum, where small internal hemorrhoids were noted, none of which was actively bleeding. The scope was then straightened out, it was subsequently withdrawn. The patient tolerated procedure well. IMPRESSION: 1. Descending colon polyp, snared. 2. Diverticulosis. 3. Sigmoid colon polyps x2, snared. 4. Rectal polyp x1, hot biopsied. 5. Proctitis, mild, biopsied. 6. Internal hemorrhoids, none actively bleeding. PLAN: Follow up histology. Initiate Anucort-HC suppository b.i.d. x10 days and p.r.n. and VSL#3 one p.o. daily. The patient might benefit from a followup colonoscopy in 3 years. Kemal Corey MD [facility] /[id number] cc: Low Bauer MD
== END | disposition home or self-care (01) ==
LOC: OR 06:16
PROVIDERS: ATTEND Internal Medicine Gastroenterology
DX: R20.8 Other disturbances of skin sensation (principal); D12.5 Benign neoplasm of sigmoid colon; D12.8 Benign neoplasm of rectum; K57.30 Diverticulosis of large intestine without perforation or abscess without bleeding; K62.89 Other specified diseases of anus and rectum; K64.8 Other hemorrhoids; K29.70 Gastritis, unspecified, without bleeding; K20.9 Esophagitis, unspecified; B96.81 Helicobacter pylori [H. pylori] as the cause of diseases classified elsewhere; I10 Essential (primary) hypertension; E11.9 Type 2 diabetes mellitus without complications; E78.6 Lipoprotein deficiency; I44.7 Left bundle-branch block, unspecified; Z88.0 Allergy status to penicillin; Z01.810 Encounter for preprocedural cardiovascular examination; Z01.812 Encounter for preprocedural laboratory examination; Z79.84 Long term (current) use of oral hypoglycemic drugs; Z68.27 Body mass index [BMI] 27.0-27.9, adult
CPT/HCPCS: 36415 ×2; 45384; 45385; 82948; 85025; 93005; J1980; J2704; 45378; 45380

== ENCOUNTER 2021-08-09 23:08 | Emergency (ER) | payer SELFPAY ==
[~2021-08-09] VITALS: Ht 162.6 cm; Wt 65.8 kg
[~2021-08-09 23:08] MED LIST changes: -FENTANYL CITRATE/PF 100MCG/2 ML INJ ONE; -HYOSCYAMINE SULFATE 0.5 MG/ML INJ ONE; -PROPOFOL IV EMULSION 10 MG/ML 50 ML VIAL ONE
[2021-08-10 01:19] VITALS: BP 155/89
== END 2021-08-10 01:21 | disposition home or self-care (01) ==
LOC: ER 23:24
DX: M25.522 Pain in left elbow (principal); M25.512 Pain in left shoulder; M54.2 Cervicalgia; W18.2XXA Fall in (into) shower or empty bathtub, initial encounter; Y93.E1 Activity, personal bathing and showering; Y92.002 Bathroom of unspecified non-institutional (private) residence as the place of occurrence of the external cause; I10 Essential (primary) hypertension; E11.9 Type 2 diabetes mellitus without complications; E78.5 Hyperlipidemia, unspecified
CPT/HCPCS: 72052; 99283